=== PATIENT | male | born 1995 ===

== ENCOUNTER 2022-03-12 13:13 | Emergency (ER) | payer OTHER ==
[2022-03-12] MEDS ORDERED: DIPHTH,PERTUSS(ACELL),TET 0.5 ML DISP.SYRIN IM ONE (13:26)
[2022-03-12 13:29] VITALS: BP 128/74; PULSE 74; RESP 16; TEMP 98.3; BMI 26.6
== END 2022-03-12 13:30 | disposition home or self-care (01) ==
LOC: JER 13:13
PROC: 3E0234Z Introduction of Serum, Toxoid and Vaccine into Muscle, Percutaneous Approach (ICD-10-PCS; principal; 2022-03-12)
DX: S41.151A Open bite of right upper arm, initial encounter (principal); W54.0XXA Bitten by dog, initial encounter
CPT/HCPCS: 90471; 90715; 99283-25